=== PATIENT | male | born 1975 | race Caucasian/White ===

== ENCOUNTER 2021-03-11 13:45 | Emergency (ER) | payer BC, SELFPAY ==
[2021-03-11 13:48] VITALS: BP 116/76; PULSE 90; RESP 20; TEMP 37.1; O2SAT 97; BMI 44.6
--- NOTE | 2021-03-11 14:20 | XR_ITS ---
PROCEDURE: XR CHEST PORTABLE CLINICAL HISTORY: NEAR SYNCOPE COMPARISON: No exams were available for comparison FINDINGS: The cardiomediastinal silhouette and pulmonary vascularity are within normal limits. The lungs are clear without infiltrates, suspicious nodules, or pleural effusions. No acute bony abnormalities. IMPRESSION: No acute findings. Dictated by: Lemuel Patel MD 03/11/2021 15:11 Lemuel Patel MD in [place] 03/11/2021 15:11
--- NOTE | 2021-03-11 14:33 | ECG_ITS ---
APPROVED REPORT Exam: Resting ECG HR:84 bpm ECG Measurements Heart Rate 84 AXES HI 160 P 48 QRSd 100 QRS 34 QT 378 T 48 QTc 446 Conclusion Normal sinus rhythm Normal ECG Electronically signed by : Estuardo Peterson MD 03/13/2021 11:48:53
[2021-03-11 14:46] LABS: Coronavirus 19, PCR Not Detected (NotDetected); Influenza A, PCR Not Detected (NotDetected); Influenza B, PCR Not Detected (NotDetected)
[2021-03-11 14:51] LABS: Basophils # 0.1 K/mm3 (0-0.2); Basophils % 0.7 % (0.1-2.0); Eosinophils # 0.2 K/mm3 (0.0-0.4); Eosinophils % 1.4 % (0.1-12.0); Hematocrit 48.4 % (42.0-52.0); Hemoglobin 16.4 g/dL (14.1-18.0); Lymphocytes # 3.7 K/mm3 (0.7-4.5); Lymphocytes % 28.8 % (10-50); Mean Corpuscular HGB Conc 33.9 g/dL (31.8-35.4); Mean Corpuscular Hemoglobin 29.3 pg (27.0-31.2); Mean Corpuscular Volume 86.5 fl (80-94); Mean Platelet Volume 9.1 fl (7.4-10.4); Monocytes # 0.9 K/mm3 (0.1-1.0); Monocytes % 7.2 % (1.7-9.3); Platelet Count 198 K/mm3 (142-424); Red Blood Count 5.59 M/mm3 (4.60-6.20); Red Cell Distribution Width 12.9 % (11.5-17.5)
[2021-03-11 14:58] LABS: Chloride 102 mmol/L (98-107); Potassium 4.1 mmoL/L (3.5-5.1); Sodium 139 mmol/L (136-145)
--- NOTE | 2021-03-11 15:00 | HMH.EDGENADL ---
ED Disposition Clinical Impression: Vasovagal near syncope Disposition: Home, Self-Care Condition on Discharge: Good Instructions: DI for Syncope in Adults (Fainting) Referrals: Ade Haines MD [Primary Care Provider] - - Critical Care Critical Care Time: No Attestation: On 03/11/21, the high probability of a clinically significant, sudden or life threatening deterioration of the following system(s) required my full and direct attention, intervention and personal management. The time I documented below is in addition to time spent performing reported procedures but includes the following listed in this critical care notation. Medical Decision Making - Medical Records Medical records reviewed: Yes: I reviewed the patient's medical records. - Srikanth Inquiry Pt receiving controlled substance: No Vital Signs: 03/11/21 13:48 Temperature 98.7 F Temperature Source Oral Pulse Rate [Left] 90 Respiratory Rate 20 Blood Pressure [Right Arm] 116/76 Blood Pressure Mean [Right Arm] 89 Blood Pressure Source [Right Arm] Automatic Cuff 02 Sat by Pulse Oximetry 97 - Lab Data Lab Results 03/11/21 13:36: WBC 13.0 H, RBC 5.59, Hgb 16.4, Hct 48.4, MCV 86.5, MCH 29.3, MCHC 33.9, RDW 12.9, Plt Count 198, MPV 9.1, Neut % (Auto) 62.0, Lymph % (Auto) 28.8, [place] % (Auto) 7.2, Eos % (Auto) 1.4, Baso % (Auto) 0.7, Neut # (Auto) 8.0 H, Lymph # (Auto) 3.7, [place] # (Auto) 0.9, Eos # (Auto) 0.2, Baso # (Auto) 0.1 03/11/21 13:36: Sodium 139, Potassium 4.1, Chloride 102, Carbon Dioxide 27, Anion Gap 14.1, BUN 18, Creatinine 0.90, Estimated Creat Clear 105, Estimated GFR 92, Est GFR ( Amer) 111, Glucose 221 H, Calcium 9.6, Troponin I < 0.01 03/11/21 14:30: SARS-CoV-2 (PCR) Not detected, Influenza A Untype (PCR) Not detected, Influenza Type B (PCR) Not detected Result diagrams: 03/11/21 13:36 03/11/21 13:36 Orders (Tests/Meds): ED MEDICATIONS Generic Name Dose Route Start Last Admin Trade Name Karla PRN Reason Stop Dose Admin Sodium Chloride 1,000 mls @ 999 mls/hr 03/11/21 15:00 03/11/21 14:49 Sod Chlor 0.9% 1000ml Bag IV 03/11/21 16:00 999 mls/hr .Q1H1M RANGEL Administration ORDERS Category Date Time Status Troponin I Q3H Lab 03/11/21 17:30 Ordered Troponin I Q3H Lab 03/11/21 20:30 Ordered - Radiology Data #1 Image(s): Chest Image Reviewed: Yes I reviewed the patient's radiology results, Yes I reviewed the patient's radiology image, Yes I have reviewed radiologist's interpretation Preliminary Findings: Normal/NAD, No Infiltrates Seen - ECG Data Tracing #1 I reviewed this ECG and interpreted as documented below: ECG initial impression date: 03/11/21 ECG initial impression time: 14:33 ECG normal with no acute: arrhythmias, ischemia, conduction abnormalities, chamber hypertrophy - Reevaluation(s) Time: 15:45 Reevaluation #1: On reevaluation, the patient is alert and appropriate. Repeat neurologic exam is normal. Patient is ambulatory. Patient's blood glucose has improved after fluid resuscitation. Negative troponin. Findings consistent with vasovagal near syncope. Patient will follow up with PCP. Given strict return precautions. Verbalized understanding. Medical Decision Narrative: 45-year-old male presented to the emergency department with a near syncope episode. Appears to be vasovagal in nature, likely secondary to his recent exertion. Patient does have some mild hyperglycemia as well. Work-up initiated. General Adult HPI - General Chief complaint: Weakness Stated complaint: weakness, headache, lbp, Time Seen by Provider: 03/11/21 13:50 Mode of Arrival: Wheelchair Limitations: No Limitations Description of Symptoms (Recalled from ER Triage Doc. by RN): patient was working at [employer] today when he lifted something heavy and sudden got dizzy/lightheaded and weak. patient sat down to recover, and checked his sugar thinking that was the issue. FSBS 366. patient was hypotensi
[2021-03-11 15:01] LABS: Anion Gap 14.1 mEq/L (5-15); Blood Urea Nitrogen 18 mg/dl (9-20); Calcium 9.6 mg/dl (8.4-10.2); Carbon Dioxide 27 mmol/L (22.0-30.0); Creatinine Clearance Estimated 105 mL/min (50-200); Estimated Glomerular Filt Rate 92 ml/min (>60); GFR (African American) 111 ML/MIN (>60); Glucose 221 mg/dl (74-100)
[2021-03-11 15:17] LABS: Troponin I < 0.01 ng/ml (0.00-0.034)
[2021-03-11 16:03] VITALS: BP 116/68; PULSE 78; RESP 16; TEMP 36.6; O2SAT 98
== END 2021-03-11 16:05 | disposition home or self-care (01) ==
PROVIDERS: Emergency Provider Emergency Medicine; PCP Family Medicine
DX: R55 Syncope and collapse (principal); E11.9 Type 2 diabetes mellitus without complications; Z79.84 Long term (current) use of oral hypoglycemic drugs
CPT/HCPCS: 71045; 80048; 84484; 85025; 93005; 96365; 99282; U0003

== ENCOUNTER 2024-03-06 14:37 | Emergency (ER) | payer BC, SELFPAY ==
[2024-03-06 14:38] VITALS: BP 168/100; PULSE 85; RESP 18; TEMP 36.8; O2SAT 95; BMI 41.3
--- NOTE | 2024-03-06 14:40 | ECG_ITS ---
APPROVED REPORT Exam: Resting ECG HR:89 bpm ECG Measurements Heart Rate 89 AXES W[place] 175 P 36 QRSd 102 QRS 23 QT 369 T 32 QTc 415 Conclusion SINUS RHYTHM NORMAL ECG Electronically signed by : SILVER DILLON, 03/06/2024 23:28:42
--- NOTE | 2024-03-06 14:43 | PC.NURSE ---
STAFF1-1 WITH PT AT THIS TIME. ALL BELONGINGS AND ITEMS REMOVED FROM PTS ROOM.
[2024-03-06 14:50] VITALS: BP 168/100; PULSE 83; RESP 17; O2SAT 94
--- NOTE | 2024-03-06 14:50 | HMH.EDGENADL ---
Discharge Plan Disposition Patient Disposition: Xfer Short-Term Hosp Condition: Fair Prescriptions Prescriptions: No Action glimepiride 4 tablet 4 mg PO DAILY metformin 500 MG tablet extended release 24 hr 2,000 mg PO DAILY Patient Comments: TAKE 4 TABLETS BY MOUTH EVERY DAY escitalopram oxalate 20 MG tablet 20 mg PO DAILY empagliflozin 25 MG tablet 25 mg PO DAILY Patient Comments: TAKE 1 TABLET BY MOUTH ONCE A DAY. amoxicillin-pot clavulanate 1 EACH tablet 500 mg PO TID Qty: 21 0RF Referrals Follow up/Referrals: Provider,Referral, MD [Referring] - See instructions Activity Restrictions/Add. Instructions Additional Instructions/Restrictions: Transfer to [facility] via Public Safety personnel via police or EMS Clinical Impressions Clinical Impression: Complicated grief, Alcohol abuse Stand Alone Forms Stand Alone Forms: Transfer Record - ED Print Language Print Language: Turkish Discharge ED Provider: Walt Fournier General Adult HPI <JEAN Perez - Last Filed: 03/06/24 17:48> General Chief complaint: Psychiatric Symptoms Stated complaint: Suicidal Time Seen by Provider: 03/06/24 14:50 Mode of Arrival: Ambulatory Source of Information: Patient Limitations: No Limitations Description of Symptoms (Recalled from ER Triage Doc. by RN): PT WITH THOUGHTS OF SELF HARM. PT HAS LOST ON 10/25/2023, THEN LOST BEST FRIEND A COUPLE OF MONTHS AGO, STATES IT'S JUST TOO MUCH. REPORTS ARGUEMENT WITH ANOTHER EMPLOYEE AT WORK AND COMES IN TEARFUL ASKING FOR HELP History of Present Illness HPI narrative: Patient presents for suicidal ideation. Patient states that he lost his about 6 weeks ago suddenly to a stroke. He has manage this far by drinking beer heavily. He feels socially isolated and feels like he has no support and stated he came to the ER because he just did not care anymore. He was afraid to go home but be by himself as he was thinking about killing himself. He does not currently have a plan. He has no audiovisual hallucinations. His last alcohol drink was yesterday. He has been drinking 6-12 beers a day when available however patient is also going to work normally. Prior to his 's passing he only drank infrequently. He denies any tremors or shakes withdrawal symptoms. Related Data Home Medications ?Medication ?Instructions ?Recorded ?Confirmed empagliflozin 25 mg tablet 25 mg PO DAILY DM 02/10/19 02/10/19 escitalopram oxalate 20 mg tablet 20 mg PO DAILY Depression 02/10/19 02/10/19 glimepiride 4 mg tablet 4 mg PO DAILY DM 02/10/19 02/10/19 metformin 500 mg tablet,extended 2,000 mg PO DAILY DM 02/10/19 02/10/19 release 24 hr Previous Rx's ?Medication ?Instructions ?Recorded amoxicillin 500 mg-potassium 500 mg PO TID #21 tabs 02/10/19 clavulanate 125 mg tablet Allergies Allergy/AdvReac Type Severity Reaction Status Date / Time ceftriaxone [From ROCEPHIN] Allergy Intermediate I-HIVES Verified 02/10/19 12:57 [facility] <JEAN Perez - Last Filed: 03/06/24 17:48> [facility] Disclaimer: The information contained in this section may have been updated after the patient was seen, as this information can be updated by other users. Social History Smoking Status: Never smoker alcohol intake: never current occupational status: employed Travel in the last 8 weeks: None <JEAN Perez - Last Filed: 03/06/24 17:48> ROS Obtained: Yes Systems reviewed as appropriate & no additional complaints except as documented Physical Exam <JEAN Perez - Last Filed: 03/06/24 17:48> General General appearance: alert and in no apparent distress Respiratory Respiratory exam: Present normal lung sounds bilaterally Cardiovascular Cardiovascular exam: Present regular rate and normal rhythm Neurological Exam Neurological exam: Present alert, oriented X3 and CN II-XII intact Psychiatric Psychiatric exam: Present depressed (And tearful) Medical Decision Making <JEAN Perez - Last Filed: 03/06/24 17:48> Medical Records Medical records reviewed: Yes I reviewed the patient's medical records. Srikanth Inquiry Pt receiving controlled substance: No Vital Signs: 03/06/24 14:38 03/06/24 14:50 03/06/24 17:39 Temperature 98.2 F Temperature Source Oral Pulse Rate 83 83 Pulse Rate [Radial] 85 Respiratory Rate 18 17 Blood Pressure 168/100 H 148/87 H Blood Pressure [Right Arm] 168/100 H Blood Pressure Mean 118 Blood Pressure Mean [Right Arm] 122 Blood Pressure Source Automatic Cuff Blood Pressure Source [Right Arm] Automatic Cuff Blood Pressure Position Supine Blood Pressure Position [Right Arm] Sitting 02 Sat by Pulse Oximetry 95 94 L 98 Oxygen Delivery Method Room Air Room Air Room Air Lab Data Lab results reviewed: Yes I reviewed the patient's lab results. Lab Results 03/06/24 14:50: WBC 8.9, RBC 5.62, Hgb 17.1, Hct 52.7 H, MCV 93.7, MCH 30.4, MCHC 32.4, RDW 13.4, Plt Count 201, MPV 9.4, Neut % (Auto) 53.2, Lymph % (Auto) 33.6, [place] % (Auto) 8.8, Eos % (Auto) 3.2, Baso % (Auto) 1.3, Neut # (Auto) 4.8, Lymph # (Auto) 3.0, [place] # (Auto) 0.8, Eos # (Auto) 0.3, Baso # (Auto) 0.1, Sodium 136, Potassium 4.1, Chloride 105, Carbon Dioxide 26, Anion Gap 9.1, BUN 14, Creatinine 0.60 L, Estimated Creat Clear 152, Estimated GFR 144, Est GFR ( Amer) 175, Glucose 205 H, Calcium 9.2, Magnesium 1.8, Total Bilirubin 0.7, AST 25, ALT 21, Alkaline Phosphatase 80, Total Protein 8.1, Albumin 4.6, Globulin 3.5 H, Albumin/Globulin Ratio 1.3, TSH 1.75, Free T4 Index 3.2 L, Thyroxine (T4) 9.6, T3 Uptake 33, Salicylates < 1.0 L, Acetaminophen < 10 L, Plasma/Serum Alcohol < 10 03/06/24 16:18: Urine Color Yellow, Urine Appearance Clear, Urine pH 6.0, Ur Specific [place] 1.015, Urine Protein Negative, Urine Glucose (UA) 3+, Urine Ketones Negative, Urine Blood Negative, Urine Nitrate Negative, Urine Bilirubin Negative, Urine Urobilinogen 0.2, Ur Leukocyte Esterase Negative, Urine WBC Occasional, Ur Squamous Epith Cells Occasional, Urine Bacteria Trace, Urine Opiates Screen Negative, Urine Methadone Screen Negative, Ur Barbituates Screen Negative, Ur Phencyclidine Scrn Negative, Ur Amphetamines Screen Negative, U Benzodiazepines Scrn Negative, Urine Cocaine Screen Negative, U Marijuana (THC) Screen Negative 03/06/24 14:50 03/06/24 14:50 Orders (Tests/Meds): ED MEDICATIONS Generic Name Dose Route Start Last Admin Trade Name Freq PRN Reason Stop Dose Admin Multivitamins 10 ml/ Thiamine 1,015 mls @ 150 mls/hr 03/06/24 15:02 03/06/24 15:37 HCl 100 mg/ Magnesium Sulfate IV 03/06/24 21:47 150 mls/hr 2 gm/ Lactated Ringer's .[id number] ONE Administration Discontinued Medications Generic Name Dose Route Start Last Admin Trade Name Freq PRN Reason Stop Dose Admin Acetaminophen 1,000 mg 03/06/24 15:00 03/06/24 15:37 Acetaminophen 1,000mg/100ml Vial IV 03/06/24 15:01 1,000 mg ONCE ONE Administration ORDERS Category Date Time Status Acetaminophen Stat Lab 03/06/24 14:50 Completed Complete Blood Count Auto Diff Stat Lab 03/06/24 14:50 Completed Comprehensive Metabolic Panel Stat Lab 03/06/24 14:50 Completed Drug Screen,Urine Stat Lab 03/06/24 16:18 Completed Ethyl Alcohol Stat Lab 03/06/24 14:50 Completed Magnesium Stat Lab 03/06/24 14:50 Completed Salicylate Stat Lab 03/06/24 14:50 Completed Thyroid Panel Stat Lab 03/06/24 14:50 Completed Urinalysis and Microscopic Stat Lab 03/06/24 16:18 Completed Medical Decision Narrative: In summary patient is a 48-year-old male who presents to the emergency department for evaluation of pathologic grief. Patient is hemodynamically stable upon arrival, afebrile. Physical exam is remarkable for obvious depression affect and crying. Patient is awake alert and oriented with a [place] Coma Score 15. My unofficial assessment shows that he is not showing any signs of alcohol intoxication or withdrawal. He denies any suicide plan but does state that he does not want to be here anymore . Differential diagnosis includes pathologic grief versus suicidal ideation versus intoxication etc. Initial workup will be conducted with hematologic labs urinalysis urine drug screen. Initial interventions are deferred other than placing being one-on-one. Initial workup reviewed by me his hematologic labs are nonactionable and his CIWA score 0. The patient was placed in observation status at 1645. Medical necessity for observational status is suicidal ideation. The patient was provided s serial exams and one-on-one observation during the observation period. We have contacted [facility] for admission and await their evaluation. He was excepted at 1745 total time in observation was 60 minutes. <Walt Fournier MD - Last Filed: 03/06/24 18:09> Vital Signs: 03/06/24 14:38 03/06/24 14:50 03/06/24 17:39 Temperature 98.2 F Temperature Source Oral Pulse Rate 83 83 Pulse Rate [Radial] 85 Respiratory Rate 18 17 Blood Pressure 168/100 H 148/87 H Blood Pressure [Right Arm] 168/100 H Blood Pressure Mean 118 Blood Pressure Mean [Right Arm] 122 Blood Pressure Source Automatic Cuff Blood Pressure Source [Right Arm] Automatic Cuff Blood Pressure Position Supine Blood Pressure Position [Right Arm] Sitting 02 Sat by Pulse Oximetry 95 94 L 98 Oxygen Delivery Method Room Air Room Air Room Air Lab Data Lab Results 03/06/24 14:50: WBC 8.9, RBC 5.62, Hgb 17.1, Hct 52.7 H, MCV 93.7, MCH 30.4, MCHC 32.4, RDW 13.4, Plt Count 201, MPV 9.4, Neut % (Auto) 53.2, Lymph % (Auto) 33.6, [place] % (Auto) 8.8, Eos % (Auto) 3.2, Baso % (Auto) 1.3, Neut # (Auto) 4.8, Lymph # (Auto) 3.0, [place] # (Auto) 0.8, Eos # (Auto) 0.3, Baso # (Auto) 0.1, Sodium 136, Potassium 4.1, Chloride 105, Carbon Dioxide 26, Anion Gap 9.1, BUN 14, Creatinine 0.60 L, Estimated Creat Clear 152, Estimated GFR 144, Est GFR ( Amer) 175, Glucose 205 H, Calcium 9.2, Magnesium 1.8, Total Bilirubin 0.7, AST 25, ALT 21, Alkaline Phosphatase 80, Total Protein 8.1, Albumin 4.6, Globulin 3.5 H, Albumin/Globulin Ratio 1.3, TSH 1.75, Free T4 Index 3.2 L, Thyroxine (T4) 9.6, T3 Uptake 33, Salicylates < 1.0 L, Acetaminophen < 10 L, Plasma/Serum Alcohol < 10 03/06/24 16:18: Urine Color Yellow, Urine Appearance Clear, Urine pH 6.0, Ur Specific [place] 1.015, Urine Protein Negative, Urine Glucose (UA) 3+, Urine Ketones Negative, Urine Blood Negative, Urine Nitrate Negative, Urine Bilirubin Negative, Urine Urobilinogen 0.2, Ur Leukocyte Esterase Negative, Urine WBC Occasional, Ur Squamous Epith Cells Occasional, Urine Bacteria Trace, Urine Opiates Screen Negative, Urine Methadone Screen Negative, Ur Barbituates Screen Negative, Ur Phencyclidine Scrn Negative, Ur Amphetamines Screen Negative, U Benzodiazepines Scrn Negative, Urine Cocaine Screen Negative, U Marijuana (THC) Screen Negative Orders (Tests/Meds): ED MEDICATIONS Generic Name Dose Route Start Last Admin Trade Name Freq PRN Reason Stop Dose Admin Multivitamins 10 ml/ Thiamine 1,015 mls @ 150 mls/hr 03/06/24 15:02 03/06/24 15:37 HCl 100 mg/ Magnesium Sulfate IV 03/06/24 21:47 150 mls/hr 2 gm/ Lactated Ringer's .[id number] ONE Administration Discontinued Medications Generic Name Dose Route Start Last Admin Trade Name Freq PRN Reason Stop Dose Admin Acetaminophen 1,000 mg 03/06/24 15:00 03/06/24 15:37 Acetaminophen 1,000mg/100ml Vial IV 03/06/24 15:01 1,000 mg ONCE ONE Administration ORDERS Category Date Time Status Acetaminophen Stat Lab 03/06/24 14:50 Completed Complete Blood Count Auto Diff Stat Lab 03/06/24 14:50 Completed Comprehensive Metabolic Panel Stat Lab 03/06/24 14:50 Completed Drug Screen,Urine Stat Lab 03/06/24 16:18 Completed Ethyl Alcohol Stat Lab 03/06/24 14:50 Completed Magnesium Stat Lab 03/06/24 14:50 Completed Salicylate Stat Lab 03/06/24 14:50 Completed Thyroid Panel Stat Lab 03/06/24 14:50 Completed Urinalysis and Microscopic Stat Lab 03/06/24 16:18 Completed Medical Decision Narrative: In summary patient is a 48-year-old male who presents to the emergency department for evaluation of pathologic grief. Patient is hemodynamically stable upon arrival, afebrile. Physical exam is remarkable for obvious depression affect and crying. Patient is awake alert and oriented with a [place] Coma Score 15. My unofficial assessment shows that he is not showing any signs of alcohol intoxication or withdrawal. He denies any suicide plan but does state that he does not want to be here anymore . Differential diagnosis includes pathologic grief versus suicidal ideation versus intoxication etc. Initial workup will be conducted with hematologic labs urinalysis urine drug screen. Initial interventions are deferred other than placing being one-on-one. Initial workup reviewed by me his hematologic labs are nonactionable and his CIWA score 0. The patient was placed in observation status at 1645. Medical necessity for observational status is suicidal ideation. The patient was provided s serial exams and one-on-one observation during the observation period. We have contacted [facility] for admission and await their evaluation. He was excepted at 1745 total time in observation was 60 minutes. I was consulted by the SUN[facility], and we discussed the complexity of the problems being addressed. I approved the treatment and management plan for this patient's care in the emergency department, thus performing a substantive portion of the medical decision making. aWlt Fournier MD Critical Care <JEAN Perez - Last Filed: 03/06/24 17:48> Critical Care Time Critical Care Time: No
--- NOTE | 2024-03-06 14:53 | PC.NURSE ---
Josse Rodriges PA-C at bedside
[2024-03-06 14:57] LABS: Basophils # 0.1 K/mm3 (0-0.2); Basophils % 1.3 % (0.1-2.0); Eosinophils # 0.3 K/mm3 (0.0-0.4); Eosinophils % 3.2 % (0.1-12.0); Hematocrit 52.7 % (42.0-52.0); Hemoglobin 17.1 g/dL (14.1-18.0); Lymphocytes % 33.6 % (10-50); Mean Corpuscular HGB Conc 32.4 g/dL (31.8-35.4); Mean Corpuscular Hemoglobin 30.4 pg (27.0-31.2); Mean Corpuscular Volume 93.7 fl (80-94); Mean Platelet Volume 9.4 fl (7.4-10.4); Monocytes # 0.8 K/mm3 (0.1-1.0); Monocytes % 8.8 % (1.7-9.3); Neutrophils # 4.8 K/mm3 (1.8-7.8); Neutrophils % 53.2 % (37.0-80.0); Platelet Count 201 K/mm3 (142-424); Red Blood Count 5.62 M/mm3 (4.60-6.20); Red Cell Distribution Width 13.4 % (11.5-17.5); White Blood Count 8.9 K/mm3 (4.8-10.8)
[2024-03-06 14:59] LABS: Albumin Level 4.6 g/dl (3.5-5.0); Chloride 105 mmol/L (98-107); Potassium 4.1 mmoL/L (3.5-5.1); Sodium 136 mmol/L (136-145)
[2024-03-06 15:01] LABS: Alanine Aminotransferase 21 U/L (12-78); Anion Gap 9.1 mEq/L (5-15); Aspartate Amino Transferase 25 U/L (17-59); Blood Urea Nitrogen 14 mg/dl (9-20); Carbon Dioxide 26 mmol/L (22.0-30.0); Creatinine Clearance Estimated 152 mL/min (50-200); Estimated Glomerular Filt Rate 144 ml/min (>60); GFR (African American) 175 ML/MIN (>60)
[2024-03-06 15:02] LABS: Albumin/Globulin Ratio 1.3 (1.1-1.8); Alkaline Phosphatase 80 U/L (38-126); Bilirubin,Total 0.7 mg/dl (0.2-1.3); Calcium 9.2 mg/dl (8.4-10.2); Globulin 3.5 g/dL (1.3-3.2); Glucose 205 mg/dl (74-100); Total Protein,Serum 8.1 g/dl (6.3-8.2)
[2024-03-06 15:04] LABS: Acetaminophen < 10 ug/ml (10-30); Salicylate < 1.0 mg/dL (2.0-20.0)
[2024-03-06 15:08] LABS: Ethyl Alcohol < 10 mg/dl (0-10)
[2024-03-06 15:19] LABS: Magnesium 1.8 mg/dl (1.6-2.3)
[2024-03-06 15:36] LABS: Triiodothryronine (T3) Uptake 33 % (23.5-40.5)
[2024-03-06 15:37] LABS: Free Thyroxine Index 3.2 ug/dL (5.93-13.13); T4 (Thyroxine) 9.6 ug/dl (5.53-11.0)
[2024-03-06] MEDS: MVI, ADULT NO.1 WITH VIT K 10 ML, THIAMINE HCL 100 MG, MAGNESIUM SULFATE 2 GM in LACTAT... 150 ML IV (15:37)
[2024-03-06] MEDS: ACETAMINOPHEN 1,000MG/100ML VIAL 1000 MG IV (15:37)
[2024-03-06 15:51] LABS: Thyroid Stimulating Hormone 1.75 uIU/mL (0.465-4.68)
[2024-03-06 16:21] LABS: Microscopic, Urine URINE MICROSCOPIC (MICROSCOPIC)
[2024-03-06 16:27] LABS: Appearance,Urine CLEAR (Clear); Bilirubin,Urine Negative (Negative); Blood, Urine Negative (Negative); Color,Urine YELLOW (Yellow); Glucose,Urine (UA) 3+ (Negative); Ketones,Urine Negative (Negative); Leukocyte Esterase,Urine Negative (Negative); Nitrate,Urine Negative (Negative); Protein,Urine Negative (Negative); Specific Gravity, Urine 1.015 (1.005-1.030); Urobilinogen,Urine 0.2 EU/dl (0.2)
[2024-03-06 16:39] LABS: Bacteria,Urine Trace /lpf; Squamous Epithelial Cell,Urine Occasional #/hpf (0-5); WBC,Urine Occasional #/hpf (0-3)
[2024-03-06 16:40] LABS: Amphetamine/Metha Screen,Urine Negative ng/ml (<1000); Benzodiazepines Screen,Urine Negative ng/ml (<200)
[2024-03-06 16:41] LABS: Barbiturates Screen,Urine Negative ng/ml (<200)
[2024-03-06 16:42] LABS: Cannabinoid Screen,Urine Negative ng/ml (<50); Methadone Screen,Urine Negative ng/ml (<300)
[2024-03-06 16:43] LABS: Cocaine Screen,Urine Negative ng/ml (<300)
[2024-03-06 16:44] LABS: Opiate Screen,Urine Negative ng/ml (<300); Phencyclidine Screen,Urine Negative ng/ml (<25)
--- NOTE | 2024-03-06 17:00 | PC.NURSE ---
all records faxed to [facility] for evaluation
--- NOTE | 2024-03-06 17:19 | PC.NURSE ---
PT SPEAKING WITH ESA ROLLE AT [facility]
[2024-03-06 17:39] VITALS: BP 148/87; PULSE 83; O2SAT 98
[2024-03-06 18:10] VITALS: BP 148/87; PULSE 84; RESP 18; TEMP 36.7; O2SAT 99
== END 2024-03-06 18:10 | disposition short-term general hospital (02) ==
PROVIDERS: Physician Assistant; Emergency Provider Emergency Medicine; PCP Nurse Practitioner Family
DX: R45.851 Suicidal ideations (principal); F10.90 Alcohol use, unspecified, uncomplicated; Z63.4 Disappearance and death of family member
CPT/HCPCS: 80050; 80053; 80307; 80320; 80329; 81001; 83735; 84436; 84443; 84479; 85025; 93005; 96365; 96366; 96375; 99285; G0480; J0131; J3411; J7120